=== PATIENT | male | born 1965 | race Caucasian/White ===

== ENCOUNTER 2020-10-15 16:24 | Emergency (ER) | payer OTHER ==
[~2020-10-15] VITALS: Ht 162.6 cm; Wt 66.2 kg
[2020-10-15 16:29] VITALS: BP 180/103; Ht 162.6 cm; Wt 66.2 kg
== END 2020-10-15 17:56 | disposition home or self-care (01) ==
LOC: ED 16:24
DX: S00.83XA Contusion of other part of head, initial encounter (principal); I10 Essential (primary) hypertension; F17.210 Nicotine dependence, cigarettes, uncomplicated; W55.22XA Struck by cow, initial encounter; Y93.K2 Activity, milking an animal; Y92.89 Other specified places as the place of occurrence of the external cause; Y99.8 Other external cause status